=== PATIENT | female | born 1965 | race Caucasian/White ===

== ENCOUNTER 2023-03-03 20:48 | Emergency (ER) | payer BC ==
[~2023-03-03] VITALS: Ht 160 cm; Wt 117.9 kg
[2023-03-03] MEDS ORDERED: DULOXETINE HCL60 MG PO (21:08)
[2023-03-03 22:52] LABS: BASO % 0.2 % (0.0-1.0); EOS # 0.1 10*3/uL (0.0-0.4); EOS % 0.5 % (1.0-4.0); HEMATOCRIT 46.4 % (37.0-47.0); LYMPH % 23.9 % (27.0-41.0); MEAN CELL VOLUME 90.3 fl (81.0-99.0); MEAN CORPUSCULAR HGB 31.1 pg (27.0-31.0); MEAN CORPUSCULAR HGB CONC 34.5 g/dl (33.0-37.0); MEAN PLATELET VOLUME 9.6 fl (9.6-12.3); MONO # 0.9 10*3/uL (0.1-1.0); MONO % 6.8 % (3.0-9.0); NEUT # 8.6 10*3/uL (2.3-7.9); NEUT % 68.1 % (47.0-73.0); PLATELET COUNT AUTOMATED 341 10*3/uL (130-400); RED BLOOD COUNT 5.14 10*6/uL (4.10-5.10); RED CELL DISTRI WIDTH 12.4 % (0-14.5); WHITE BLOOD COUNT 12.7 10*3/uL (4.8-10.8)
[2023-03-03 23:05] LABS: ACT PARTIAL THROMBO TIME 25.5 SECONDS (20.0-32.1)
[2023-03-03 23:19] LABS: ALKALINE PHOSPHATASE 162 U/L (46-116); BUN 15 mg/dl (9-23); CHLORIDE 101 mmol/L (98-107); LIPASE 48 U/L (12-53); POTASSIUM 3.8 mmol/L (3.4-5.1); SGPT/ALT 38 U/L (10-49); TOTAL PROTEIN 7.7 gm/dL (6.0-8.0)
[2023-03-04 00:13] LABS: BILIRUBIN Negative (Negative); BLOOD 3+ (Negative); CLARITY Cloudy (Clear); COLOR Yellow (Yellow); GLUCOSE Trace (Negative); KETONE Negative (Negative); LEUKO ESTERASE Negative (Negative); NITRITE Negative (Negative); PH 6.5 (4.5-8.0); SPECIFIC GRAVITY 1.025 (1.001-1.030)
[2023-03-04] MEDS ORDERED: FLOMAX0.4 MG PO (00:25)
[2023-03-04] MEDS ORDERED: TRAMADOL HCL50 MG PO (00:30)
[2023-03-04 00:49] LABS: EPITHELIAL CELLS 31-40; RBC 41-50 rbc/hpf (0-2)
[2023-03-04 00:50] LABS: BACTERIA 1+; WBC 0-2 wbc/hpf (0-5)
== END 2023-03-04 01:00 | disposition home or self-care (01) ==
LOC: ED 20:48
PROVIDERS: Internal Medicine
DX: N20.0 Calculus of kidney (principal); R11.10 Vomiting, unspecified; Z88.6 Allergy status to analgesic agent; Z79.899 Other long term (current) drug therapy; Z90.711 Acquired absence of uterus with remaining cervical stump; Z90.721 Acquired absence of ovaries, unilateral

== ENCOUNTER 2024-06-24 23:20 | Emergency (ER) | payer BC ==
[~2024-06-24] VITALS: Ht 160 cm; Wt 108.9 kg
[~2024-06-24 23:20] MED LIST: DULOXETINE HCL60 MG PO; FLOMAX0.4 MG PO; TRAMADOL HCL50 MG PO
[2024-06-25] MEDS ORDERED: MORPHINE Sulfate 2 MG/ML SYR IV ONE (00:05)
[2024-06-25 00:08] LABS: BILIRUBIN Negative (Negative); BLOOD 1+ (Negative); CLARITY Clear (Clear); COLOR Yellow (Yellow); GLUCOSE Negative (Negative); KETONE Negative (Negative); LEUKO ESTERASE 2+ (Negative); NITRITE Negative (Negative); SPECIFIC GRAVITY <= 1.005 (1.001-1.030); UROBILINOGEN 0.2 E.U./dl (0.0-1.0)
[2024-06-25 00:17] LABS: HEMATOCRIT 41.4 % (37.0-47.0); MEAN CELL VOLUME 92.4 fl (81.0-99.0); MEAN CORPUSCULAR HGB CONC 33.6 g/dl (33.0-37.0); MEAN PLATELET VOLUME 9.3 fl (9.6-12.3); PLATELET COUNT AUTOMATED 263 10*3/uL (130-400); RED BLOOD COUNT 4.48 10*6/uL (4.10-5.10); RED CELL DISTRI WIDTH 11.9 % (0-14.5); WHITE BLOOD COUNT 12.7 10*3/uL (4.8-10.8)
[2024-06-25 00:19] LABS: MANUAL DIFF REFLEX YES
[2024-06-25] MEDS ORDERED: SODIUM CHLORIDE 0.9% 500 ML IV ONE ×2 (00:33→23:55)
[2024-06-25 00:37] LABS: PLATELET SUFFICIENCY NORMAL (NORMAL); TOTAL CELLS COUNTED 100 #CELLS
[2024-06-25 00:44] LABS: POTASSIUM 3.4 mmol/L (3.4-5.1)
[2024-06-25] MEDS ORDERED: SODIUM CHLORIDE 0.9% 1,000 ML IV SCH (01:00)
[2024-06-25] MEDS ORDERED: Ceftriaxone Sodium 1 GM/10 ML SYR IV ONE (01:00)
[2024-06-25 01:34] LABS: WBC 16-20 wbc/hpf (0-5)
[2024-06-25] MEDS ORDERED: METFORMIN XR500 MG PO (01:46)
[2024-06-25] MEDS ORDERED: CEFUROXIME AXE500 MG PO (01:46)
[2024-06-25] MEDS ORDERED: OZEMPIC0.25 MG/03 SQ (01:46)
[2024-06-25] MEDS ORDERED: IRBESARTAN150 MG PO (01:47)
== END 2024-06-25 05:44 | disposition home or self-care (01) ==
LOC: ED 23:20
PROVIDERS: Internal Medicine
DX: A41.9 Sepsis, unspecified organism (principal); N13.2 Hydronephrosis with renal and ureteral calculous obstruction; R11.2 Nausea with vomiting, unspecified; E11.9 Type 2 diabetes mellitus without complications; I10 Essential (primary) hypertension; F32.A Depression, unspecified; Z88.6 Allergy status to analgesic agent; Z88.8 Allergy status to other drugs, medicaments and biological substances; Z90.49 Acquired absence of other specified parts of digestive tract; Z90.710 Acquired absence of both cervix and uterus